=== PATIENT | female | born 1995 | race Caucasian/White ===

== ENCOUNTER 2024-01-26 22:58 | Emergency (ER) | payer OTHER ==
[2024-01-26 23:11] VITALS: BMI 27.6
[2024-01-27 00:14] LABS: EPI CELLS 10 /uL (0-25.1); HYALINE CASTS 0 /uL (0-3.1); PH,URINE 7.5 (5.0-8.0); URINE APPEARANCE CLEAR; URINE BACTERIA 250 /uL (0-1359); URINE BILIRUBIN NEGATIVE (NEGATIVE); URINE COLOR YELLOW; URINE GLUCOSE (UA) NEGATIVE (NEGATIVE); URINE KETONE NEGATIVE (NEGATIVE); URINE LEUK ESTERASE 2+ (NEGATIVE); URINE NITRITE NEGATIVE (NEGATIVE); URINE PROTEIN NEGATIVE (NEGATIVE); URINE RBC 11 /uL (0-23.9); URINE UROBILINOGEN 0.2 mg/dL (0.2-1.0); URINE WBC 22 /uL (0-25.8)
[2024-01-27 00:23] VITALS: BP 107/77; PULSE 102; RESP 17; TEMP 98.4
== END 2024-01-27 02:10 | disposition home or self-care (01) ==
LOC: JER 22:58
DX: O26.852 Spotting complicating pregnancy, second trimester (principal); Z3A.24 24 weeks gestation of pregnancy
CPT/HCPCS: 76801-TC; 76817-TC; 81003; 87086; 99284-25